=== PATIENT | male | born 1960 | race Caucasian/White ===

== ENCOUNTER 2019-09-18 03:26 | Inpatient (IN) | payer MEDICARE, SELFPAY ==
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
[2019-09-18 03:32] VITALS: BP 120/78; PULSE 80; RESP 18; TEMP 36.6; O2SAT 97; BMI 23.5
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
[2019-09-18] MEDS: haloperidol inj 5 mg/mL INJ 1 mL IM (03:37)
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
[2019-09-18] MEDS: lactated ringers 1,000 ML 150 ML IV (03:56)
[2019-09-18 04:07] LABS: Basophils % 0.2 %; Eosinophils # 0.1 10^3/uL (0.0-0.8); Eosinophils % 0.3 %; Hematocrit 43.8 % (42.0-52.0); Lymphocytes # 5.2 10^3/uL (0.8-4.8); Lymphocytes % 25.2 %; Mean Corpuscular HGB Conc 34.2 g/dL (30.0-36.0); Mean Corpuscular Hemoglobin 31.1 pg (28.0-34.0); Mean Corpuscular Volume 90.9 fL (80-94); Mean Platelet Volume 9.2 fL (7.4-10.4); Monocytes # 1.1 10^3/uL (0.2-0.9); Monocytes % 5.5 %; Neutrophils # 14.1 10^3/uL (1.8-7.7); Neutrophils % 68.2 %; Nucleated Red Blood Cells % 0 %; Platelet Count 263 10^3/cmm (130-400); Red Blood Count 4.82 10^6/uL (4.1-5.3); Red Cell Distribution Width 13.1 % (12.1-15.1); White Blood Count 20.7 10^3/uL (4.0-10.0)
[2019-09-18 04:21] LABS: Alanine Aminotransferase 18 U/L (0-41); Albumin Level 4.8 g/dL (3.5-5.2); Alcohol Level 295 mg/dL (0-10); Alkaline Phosphatase 88 IU/L (40-130); Anion Gap 18.9 (5-19); Aspartate Amino Transferase 35 U/L (0-40); Blood Urea Nitrogen 6 mg/dL (6-20); Calcium 9.3 mg/dL (8.5-10.5); Carbon Dioxide 23 mmol/L (22-29); Chloride 106 mmol/L (98-107); Globulin 2.4 g/dL (1.3-4.6); Glomerular Filtration Rate 99.3 mL/min (90-130); Glucose 100 mg/dL (65-115); Osmolality Calculated 294 mOsm/kg (285-295); Potassium 3.9 mmol/L (3.5-5.1); Sodium 144 mmol/L (136-145); Total Bilirubin 0.2 mg/dL (0.15-1.2); Total Protein 7.2 g/dL (6.6-8.7)
[2019-09-18 04:48] LABS: Phenytoin Dilantin 1.1 ug/mL (10-20); Valproic Acid Level 2.8 mcg/mL (50-100)
[2019-09-18 04:57] LABS: Acetaminophen < 5.0 ug/mL (10-30); Salicylate < 0.3 mg/dL (3-10)
[2019-09-18 05:01] LABS: Lithium < 0.1 mmol/L (0.6-1.2)
--- NOTE | 2019-09-18 05:11 | ECG_ITS ---
Measurements Intervals [place] Rate: 88 P: 73 CT: 171 QRS: -7 QRSD: 86 T: 60 QT: 354 QTc: 430 SINUS RHYTHM INTERPRETATION BASED ON A DEFAULT AGE OF 40 YEARS No previous ECG available for comparison Electronically Signed On 09-18-2019 18:54:15 CDT by Francisco Luna M.D. [email or web address]
[2019-09-18 05:23] LABS: Bacteria Urine TRACE; Bilirubin Urine Neg (NEGATIVE); Blood Urine Neg (Negative); Glucose Urine UA Norm (Normal); Ketones Urine Negative (Negative); Leukocyte Esterase Urine Negative (Negative); Nitrate Urine Negative (Negative); Protein Urine Neg (Negative); RBC Urine RARE /hpf (0-2); Specific Gravity, Urine 1.005 (1.005-1.030); Squamous Epithelial Cell Urine RARE (0-5); Urine Appearance Clear (CLEAR); Urine Color Yellow (Yellow); Urobilinogen Urine Norm (Negative); WBC Urine RARE /hpf (0-5); pH Urine 6.5 (5-7)
[2019-09-18 05:25] LABS: Amphetamines Screen Urine Negative (Negative); Barbiturates Screen Urine Negative (Negative); Benzodiazepines Screen Urine Positive (Negative); Cocaine Screen Urine Negative (Negative); Opiate Screen Urine Positive (Negative); PCP Screen Urine Negative (Negative); THC Screen Urine Negative (Negative)
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
[2019-09-18 06:08] LABS: Lactic Sepsis W/Reflex 2.2 mmol/L (0.5-2.2)
[2019-09-18] MEDS: iohexol 300 mg/mL 100 mL Btl IV (06:28)
[2019-09-18 06:37] LABS: Basophils % 0.2 %; Eosinophils # 0.1 10^3/uL (0.0-0.8); Eosinophils % 0.5 %; Hematocrit 38.4 % (42.0-52.0); Hemoglobin 12.8 g/dL (11.7-16.6); Lymphocytes # 4.4 10^3/uL (0.8-4.8); Lymphocytes % 27.7 %; Mean Corpuscular HGB Conc 33.3 g/dL (30.0-36.0); Mean Corpuscular Hemoglobin 31.4 pg (28.0-34.0); Mean Corpuscular Volume 94.1 fL (80-94); Mean Platelet Volume 9.4 fL (7.4-10.4); Monocytes % 5.9 %; Neutrophils # 10.5 10^3/uL (1.8-7.7); Neutrophils % 65.3 %; Nucleated Red Blood Cells % 0 %; Platelet Count 227 10^3/cmm (130-400); Red Blood Count 4.08 10^6/uL (4.1-5.3); Red Cell Distribution Width 13.2 % (12.1-15.1); White Blood Count 16.1 10^3/uL (4.0-10.0)
[2019-09-18 07:38] LABS: Reflex Lactate Order REFLEX LACTIC ORDERD
[2019-09-18 08:19] VITALS: BP 104/60; PULSE 87; O2SAT 97
--- NOTE | 2019-09-18 08:19 | PC.NURSE ---
Amado Catheter removed. 20 g IV removed from left FA
[2019-09-18 08:31] VITALS: BP 96/62; PULSE 88; RESP 18; TEMP 36.6; O2SAT 99
[2019-09-18 08:50] LABS: Lactic Acid level (Lactate) 1.7 mmol/L (0.5-2.2)
[2019-09-18 14:00] VITALS: BP 111/73; PULSE 92; RESP 18; TEMP 37.1; O2SAT 95
[2019-09-18] MEDS: pregabalin 150 mg Capsule PO ×2 (14:06→20:37)
[2019-09-18] MEDS: HYDROcodone-acetaminophen 10-325 mg Tablet 1 TAB PO ×2 (14:07→20:37)
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
[2019-09-18] MEDS: famotidine 20 mg Tablet 40 MG PO (20:44)
[2019-09-18] MEDS: trazodone 150 mg Tablet PO (21:01)
[2019-09-18 22:00] VITALS: BP 98/63; PULSE 93; RESP 20; TEMP 37.1; O2SAT 96
[2019-09-19 06:00] VITALS: BP 105/76; PULSE 75; RESP 18; TEMP 36.9; O2SAT 97
[2019-09-19 06:37] LABS: Basophils % 0.3 %; Eosinophils # 0.2 10^3/uL (0.0-0.8); Eosinophils % 1.6 %; Hematocrit 40.3 % (42.0-52.0); Hemoglobin 13.7 g/dL (11.7-16.6); Lymphocytes % 26.9 %; Mean Corpuscular Hemoglobin 31.1 pg (28.0-34.0); Mean Corpuscular Volume 91.4 fL (80-94); Mean Platelet Volume 9.3 fL (7.4-10.4); Monocytes # 0.9 10^3/uL (0.2-0.9); Monocytes % 7.7 %; Neutrophils # 7.1 10^3/uL (1.8-7.7); Neutrophils % 63.2 %; Nucleated Red Blood Cells % 0 %; Platelet Count 224 10^3/cmm (130-400); Red Blood Count 4.41 10^6/uL (4.1-5.3); Red Cell Distribution Width 13.2 % (12.1-15.1); White Blood Count 11.3 10^3/uL (4.0-10.0)
[2019-09-19 06:57] LABS: Anion Gap 14.7 (5-19); Blood Urea Nitrogen 12 mg/dL (6-20); Calcium 9.5 mg/dL (8.5-10.5); Carbon Dioxide 26 mmol/L (22-29); Chloride 104 mmol/L (98-107); Glomerular Filtration Rate 86.7 mL/min (90-130); Glucose 95 mg/dL (65-115); Osmolality Calculated 288 mOsm/kg (285-295); Potassium 3.7 mmol/L (3.5-5.1); Sodium 141 mmol/L (136-145)
[2019-09-19] MEDS: pantoprazole DR 40 mg Tablet PO (08:37)
[2019-09-19] MEDS: HYDROcodone-acetaminophen 10-325 mg Tablet 1 TAB PO ×3 (08:38→21:22)
[2019-09-19] MEDS: pregabalin 150 mg Capsule PO ×3 (08:38→21:23)
[2019-09-19] MEDS: thiamine 100 mg Tablet PO (10:15)
[2019-09-19] MEDS: multivitamin therapeutic Tablet 1 TAB PO (10:15)
[2019-09-19] MEDS: folic acid 1 mg Tablet PO (10:15)
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
[2019-09-19 14:00] VITALS: BP 120/79; PULSE 80; RESP 17; TEMP 37.1
--- NOTE | 2019-09-19 14:18 | P.PN_ITS ---
Subjective Subjective: Interval history: Chart reviewed, leukocytosis improved, hemodynamically stable, afebrile. Patient seen in room, pleasant, reports R sided rib cage pain and has bruising on face. Expresses regret for being intoxicated as he had previously been abstinent for 16 yrs. Reports that he may get to go home tomorrow. Lives independently in apartment. Medications: Reviewed: Yes Medication Review Details: Active Medications Generic Name Dose Route Start Last Admin Trade Name Freq PRN Reason Stop Dose Admin Acetaminophen 650 mg 09/18/19 08:31 Tylenol PO Q4H PRN MILD PAIN Hydrocodone Bitart /Acetaminophen 1 tab 09/18/19 15:00 09/19/19 14:16 [place] 10-325 Mg PO 1 tab TID CARLITOS Administration Benztropine Mesyla te 1 mg 09/18/19 08:31 Cogentin PO BID PRN Mild Extrapyramid al symptoms Camphor/Menthol/Ph enol 1 applic 09/18/19 08:31 Blistex TOPICAL Q1H PRN DRYNESS Diazepam 5 mg 09/18/19 11:07 Valium PO TID PRN ANXIETY Diazepam 5 mg 09/19/19 13:27 Valium PO TID PRN ANXIETY Diphenhydramine HC l 50 mg 09/18/19 08:31 Benadryl IM ONCE PRN Severe Extrapyram idal Symptoms Diphenhydramine HC l 50 mg 09/18/19 08:31 Benadryl IM Q4H PRN Severe Aggression Famotidine 40 mg 09/18/19 21:00 09/18/19 20:44 Pepcid Tab PO 40 mg BEDTIME CARLITOS Administration Folic Acid 1 mg 09/19/19 10:00 09/19/19 10:15 Folic Acid PO 1 mg DAILY CARLITOS Administration Haloperidol 5 mg 09/18/19 08:31 Haldol PO Q4H PRN AGITATION Haloperidol Lactat e 5 mg 09/18/19 08:31 Haldol Inj IM Q4H PRN Severe Aggression Hydroxyzine Pamoat e 50 mg 09/18/19 08:31 Vistaril PO Q6H PRN ANXIETY Loperamide HCl 2 mg 09/18/19 08:31 Imodium Capsule PO Q6H PRN DIARRHEA Lorazepam 2 mg 09/18/19 08:31 Ativan IM Q4H PRN ALCOHOL WITHDRAWA L Lorazepam 2 mg 09/19/19 09:55 Ativan PO Q4H PRN ALCOHOL WITHDRAWA L Multivitamins Ther apeutic 1 tab 09/19/19 10:00 09/19/19 10:15 Multivitamin Tab PO 1 tab DAILY CARLITOS Administration Nicotine 1 patch 09/18/19 08:31 Nicoderm 21 Mg P atch TRANSDERMA DAILY PRN NICOTINE WITHDRAW AL Nicotine Polacrile x 2 mg 09/18/19 08:31 Nicorette BUCCAL Q2H PRN NICOTINE WITHDRAW AL Olanzapine 5 mg 09/18/19 08:31 Zyprexa Zydis PO Q4H PRN Agitation/Psychos is Ondansetron HCl 4 mg 09/18/19 08:31 Zofran PO Q6H PRN NAUSEA AND VOMITI NG Pantoprazole Sodiu m 40 mg 09/19/19 09:00 09/19/19 08:37 Protonix PO 40 mg DAILY CARLITOS Administration Pregabalin 150 mg 09/18/19 15:00 09/19/19 14:16 Lyrica PO 150 mg TID CARLITOS Administration Thiamine Mononitra te 100 mg 09/19/19 10:00 09/19/19 10:15 Vitamin B-1 PO 100 mg DAILY CARLITOS Administration Trazodone HCl 50 mg 09/18/19 08:31 Desyrel PO BEDTIME PRN SLEEP Trazodone HCl 150 mg 09/18/19 21:00 09/18/19 21:01 Desyrel PO 150 mg BEDTIME PRN Administration Insomnia Penicillins Allergy (Verified 09/18/19 03:38) ALGY-Anaphylaxis Vitals/I&O/Wt Last Vital Signs Temp 98.5 F 09/19/19 06:00 Pulse 75 09/19/19 06:00 Resp 18 09/19/19 06:00 BP 105/76 09/19/19 06:00 Pulse Ox 97 09/19/19 06:00 09/18/19 09/19/19 09/19/19 22:59 06:59 14:59 Intake Total 240 / 1240 480 / 1720 Balance 240 / 1240 480 / 1720 Weight last 48 hrs Weight 68.039 kg Physical Exam Const: COMMON NORMALS: no acute distress, patient oriented x3 and alert GENERAL APPEARANCE: cooperative and comfortable ORIENTATION/CONSCIOUSNESS: Yes awake HENMT: COMMON NORMALS: normocephalic, atraumatic, hearing grossly normal bilaterally and moist oral mucous membranes HEAD & SCALP: normocephalic and atraumatic FACE & SINUS: other (bruising all over face) Eye: COMMON NORMALS: Equal, round and reactive pupils present, EOMs intact bilaterally and conjunctivae normal CONJUNCTIVA: Yes conjunctivae normal PUPIL: Yes Equal, round and reactive pupils present Neck/C-Spine: COMMON NORMALS: full ROM GENERAL: Yes normal visual inspection and Yes trachea midline Chest: CHEST: Yes Symmetrical chest wall rise and Yes other (tenderness to palpation of R anterior and posterior rib cage) Resp: COMMON NORMALS: normal respiratory effort, No retractions, No use of accessory muscles and clear to auscultation bilaterally EFFORT & INSPECTION: Yes able to speak in complete sentences, Yes symmetric chest movement and No tachypneic AUSCULTATION: clear to auscultation bilaterally Cardio: COMMON NORMALS: regular rate, regular rhythm, S1 normal heart sound present, S2 normal heart sound present and No murmurs present (Cardio) RATE: regular rate RHYTHM: regular rhythm HEART SOUNDS: S1 normal heart sound present and S2 normal heart sound present GI: COMMON NORMALS: Normal to inspection, nondistended, normoactive bowel sounds present, Soft to palpation and non-tender PALPATION: Yes Soft to palpation Extremity: COMMON NORMALS: normal to inspection, full ROM, no clubbing, cyanosis or edema and no pedal edema Neuro: COMMON NORMALS: patient oriented x3, moves all extremities, no focal motor deficits, no sensory deficits noted and gait normal SENSORIUM/ORIENTATION: Yes alert Psych: COMMON NORMALS: mental status grossly normal, Normal thought process present, cooperative, normal affect and speech normal SPEECH: Yes normal speech THOUGHT PROCESS: Normal thought process present Skin: COMMON NORMALS: no jaundice, no petechiae and no mottling Urinary Catheter Management^: Amado: Cath Placed During This Visit: yes Urinary Catheter Date of Insertion: 09/18/19 Urinary Catheter Time of Insertion: 05:58 Data : 09/19/19 06:28 09/19/19 06:28 Micro: Microbiology 09/18/19 05:45 Blood Culture - Preliminary Blood NEGATIVE TO DATE 09/18/19 05:48 Blood Culture - Preliminary Blood NEGATIVE TO DATE A&P Assessment and plan (1) Leukocytosis: -seems to be stress reaction as no overt infection based on extensive imaging, decreased leukocytosis without treatment, afebrile -WBC trending down -noted bladder distention and wall thickening; had Amado catheter placed and removed in ED; may need urology evaluation as outpatient if recurrent issues with this. Will add Flomax, noted potential bladder outlet obstruction which with age is likely secondary to BPH Status: Acute Qualifiers: Leukocytosis type: unspecified Qualified Code(s): D72.829 - Elevated white blood cell count, unspecified (2) Acute alcohol intoxication: -EtOH-295 on admission -reportedly had been abstinent x 16 yrs -continue folic acid, thiamine, multivitamins daily -[facility] protocol -VSS; continue to monitor Status: Acute Qualifiers: Complication of substance-induced condition: uncomplicated Qualified Code(s): F10.920 - Alcohol use, unspecified with intoxication, uncomplicated Additional A&P Information -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 Continue to f/u with Dr. Lassiter, on narcotics -regular diet as tolerated -rest of care per psychiatry -will sign off, please call with questions Attestations Medical Necessity Statement*: Patient requires hospitalization for continued management of acute alcohol intoxication; per psychiatry. Time Spent in Patient Care: 16 - 35 minutes (>than 50% of time spent in counselling and/or direct pt care on unit) . Coding Level of Care Code Acute Outboard System Operator for Chg Fwd Exam Comprehensive Diagnoses Leukocytosis D72.829 Leukocytosis type: unspecified Acute alcohol intoxication F10.920 Complication of substance-induced condition: uncomplicated
[2019-09-19] MEDS: nicotine 21 mg Patch 1 PATCH TRANSDERMA (16:10)
[2019-09-19] MEDS: trazodone 50 mg Tablet PO (21:22)
[2019-09-19] MEDS: famotidine 20 mg Tablet 40 MG PO (21:22)
[2019-09-19] MEDS: tamsulosin 0.4 mg Capsule PO (21:23)
[2019-09-19 22:00] VITALS: BP 115/78; PULSE 84; RESP 16; TEMP 36.6; O2SAT 97
[2019-09-20 06:00] VITALS: BP 104/53; PULSE 65; RESP 17; TEMP 36.7; O2SAT 96
[2019-09-20] MEDS: multivitamin therapeutic Tablet 1 TAB PO (08:22)
[2019-09-20] MEDS: thiamine 100 mg Tablet PO (08:22)
[2019-09-20] MEDS: HYDROcodone-acetaminophen 10-325 mg Tablet 1 TAB PO ×2 (08:22→13:57)
[2019-09-20] MEDS: tamsulosin 0.4 mg Capsule PO (08:22)
[2019-09-20] MEDS: folic acid 1 mg Tablet PO (08:22)
[2019-09-20] MEDS: pregabalin 150 mg Capsule PO ×2 (08:22→13:57)
[2019-09-20] MEDS: pantoprazole DR 40 mg Tablet PO (08:22)
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
[2019-09-20 15:49] VITALS: BP 104/53; PULSE 65; RESP 17; TEMP 36.7; O2SAT 96
--- NOTE | 2019-09-22 12:53 | PC.RESP ---
SMOKING CESSATION INFORMATION SENT TO PATIENT.
== END 2019-09-20 16:28 | disposition home or self-care (01) | DRG 897 ==
LOC: ER 05:56 → NP 07:59
PROVIDERS: Emergency Medicine; Family Medicine; Admitting Provider Psychiatry & Neurology Psychiatry; Family Provider Family Medicine; Visit Provider Psychiatry & Neurology Psychiatry
DX: F10.920 Alcohol use, unspecified with intoxication, uncomplicated (principal); G89.29 Other chronic pain; M54.9 Dorsalgia, unspecified; F32.9 Major depressive disorder, single episode, unspecified; Z79.891 Long term (current) use of opiate analgesic; F17.210 Nicotine dependence, cigarettes, uncomplicated; F41.9 Anxiety disorder, unspecified
CPT/HCPCS: 12345; 36415; 51702; 70450; 71045; 71260; 72125; 72128; 72131; 72170; 74177; 80048; 80053; 80156; 80164; 80178; 80185; 80306; 80307; 81001; 83605; 85025; 87040; 93005; 96372; 99284; J1630; Q9967

== ENCOUNTER 2019-10-14 13:10 | Outpatient (CLI) | payer MEDICARE, SELFPAY ==
--- NOTE | 2019-10-14 13:23 | XR_ITS ---
WS: [id number] LUMBAR SPINE FLEXION AND EXTENSION TECHNIQUE: 3 views of the lumbar spine: Lateral neutral, flexion, and extension views. CLINICAL INFORMATION: LOW BACK PAIN COMPARISON: May 21, 2012 FINDINGS: Normal lumbar alignment on the neutral view. No instability on the flexion and extension views. Mild anterior wedging at T11-T12. Moderate facet a rthropathy L4-L5 and L5-S1. XR/XR lumbar spine f/e only [id number] IMPRESSION: No instability on flexion-extension
== END 2019-10-14 13:11 | disposition home or self-care (01) ==
LOC: RADWPI 13:15
PROVIDERS: Family Provider Family Medicine; PCP Family Medicine; Visit Provider Nurse Practitioner
DX: M54.5 Low back pain (principal); M48.54XA Collapsed vertebra, not elsewhere classified, thoracic region, initial encounter for fracture; M12.88 Other specific arthropathies, not elsewhere classified, other specified site
CPT/HCPCS: 72120

== ENCOUNTER 2021-02-28 17:18 | Emergency (ER) | payer MEDICARE, SELFPAY ==
[2021-02-28] VITALS (7 sets, daily range): BP systolic 120–128; BP diastolic 63–78; PULSE 68–74; RESP 16–22; O2SAT 97–99; BMI 23.5
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
--- NOTE | 2021-02-28 18:37 | ECG_ITS ---
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 Measurements Intervals [place] Rate: 58 P: 151 SD: 131 QRS: -4 QRSD: 85 T: 88 QT: 382 QTc: 377 Interpretive Statements ECTOPIC ATRIAL BRADYCARDIA POSSIBLE LEFT ATRIAL ENLARGEMENT [-0.1mV P-WAVE IN V1/V2] NONSPECIFIC T-WAVE ABNORMALITY Compared to ECG 09/18/2019 05:24:54 Bradycardia, nonsinus now present T-wave abnormality now present Sinus rhythm no longer present Electronically Signed On 03-01-2021 7:29:26 SERVICE ORDER TAKER by Patrizia Valverde M.D. [id number]
[2021-02-28 18:45] LABS: Basophils % 0.4 %; Eosinophils # 0.1 10^3/uL (0.0-0.8); Eosinophils % 1.1 %; Hematocrit 40.3 % (42.0-52.0); Hemoglobin 13.9 g/dL (11.7-16.6); Lymphocytes # 3.1 10^3/uL (0.8-4.8); Mean Corpuscular HGB Conc 34.5 g/dL (30.0-36.0); Mean Corpuscular Hemoglobin 32.3 pg (28.0-34.0); Mean Corpuscular Volume 93.7 fl (80-94); Mean Platelet Volume 9.4 fL (7.4-10.4); Monocytes # 0.7 10^3/uL (0.2-0.9); Neutrophils # 7.48 10^3/uL (1.8-7.7); Neutrophils % 65.3 %; Nucleated Red Blood Cells % 0 %; Platelet Count 280 10^3/cmm (130-400); Red Cell Distribution Width 12.8 % (12.1-15.1); White Blood Count 11.4 10^3/uL (4.0-10.0)
[2021-02-28 18:58] LABS: Alanine Aminotransferase 9 U/L (0-41); Albumin Level 4.3 g/dL (3.5-5.2); Alkaline Phosphatase 138 IU/L (40-130); Anion Gap 15.8 (5-19); Aspartate Amino Transferase 12 U/L (0-40); Blood Urea Nitrogen 13 mg/dL (8-23); Calcium 9.2 mg/dL (8.5-10.5); Carbon Dioxide 21 mmol/L (22-29); Chloride 105 mmol/L (98-107); Globulin 2.6 g/dL (1.3-4.6); Glucose 109 mg/dL (65-115); Osmolality Calculated 287 mOsm/kg (285-295); Potassium 3.8 mmol/L (3.5-5.1); Sodium 138 mmol/L (136-145); Total Bilirubin 0.2 mg/dL (0.15-1.2); Total Protein 6.9 g/dL (6.6-8.7)
[2021-02-28] MEDS: morphine 4 mg/mL SDV 1 mL IVP ×2 (19:01→23:28)
[2021-02-28 19:04] LABS: Acetaminophen < 5.0 ug/mL (10-30); Alcohol Level < 10 mg/dL (0-10); Salicylate < 0.3 mg/dL (3-10)
[2021-02-28] MEDS: methocarbamol 750 mg Tablet PO (19:29)
[2021-02-28] MEDS: LORazepam 2 mg/mL INJ 1 mL 1 MG IVP (20:10)
[2021-02-28 20:11] LABS: Amphetamines Screen Urine Negative (Negative); Barbiturates Screen Urine Negative (Negative); Benzodiazepines Screen Urine Negative (Negative); Cocaine Screen Urine Negative (Negative); Opiate Screen Urine Positive (Negative); PCP Screen Urine Negative (Negative); THC Screen Urine Negative (Negative)
[2021-02-28 22:09] LABS: Thyroid Stimulating Hormone 0.84 uIU/mL (0.27-4.20)
[2021-02-28] MEDS: acetaminophen 500 mg Tablet 1000 MG PO (23:06)
== END 2021-02-28 23:35 | disposition home or self-care (01) ==
PROVIDERS: Emergency Provider Emergency Medicine; PCP Family Medicine
DX: M54.6 Pain in thoracic spine (principal); G89.29 Other chronic pain; F17.200 Nicotine dependence, unspecified, uncomplicated; Z79.891 Long term (current) use of opiate analgesic; F10.20 Alcohol dependence, uncomplicated
CPT/HCPCS: 80053; 80306; 80307; 84443; 85025; 93005; 96365; 96375; 96376; 99284; J2060; J2270; J3490; J7050

== ENCOUNTER → 2021-10-10 13:30 | Outpatient (BNVA) | payer MEDICARE, SELFPAY | PROVIDERS: PCP Family Medicine; Visit Provider Psychiatry & Neurology Psychiatry | DX: F41.1 Generalized anxiety disorder (principal) | CPT/HCPCS: 99204 ==

== ENCOUNTER 2022-02-14 17:38 | Emergency (ER) | payer OTHER, SELFPAY ==
--- NOTE | 2022-02-14 17:31 | XRR_ITS ---
PROCEDURE INFORMATION: Exam: XR Lumbosacral Spine Exam date and time: 02/14/2022 6:32 PM Age: 62 years old Clinical indication: Low back pain; Additional info: Fall back pain TECHNIQUE: Imaging protocol: Radiologic exam of the lumbosacral spine. Views: 2 or 3 views. COMPARISON: CT lumbar spine wo con* [id number] 02/14/2022 6:23 PM FINDINGS: Bones/joints: No acute fracture. Normal alignment. Soft tissues: Unremarkable. XR/XR lumbar spine 2-3V* [id number] IMPRESSION: No acute findings.
--- NOTE | 2022-02-14 17:54 | CTR_ITS ---
PROCEDURE INFORMATION: Exam: CT Lumbar Spine Without Contrast Exam date and time: 02/14/2022 6:23 PM Age: 62 years old Clinical indication: Injury or trauma; Fall; Blunt trauma (contusions or hematomas) TECHNIQUE: Imaging protocol: Computed tomography of the lumbar spine without contrast. Radiation optimization: All CT scans at this facility use at least one of these dose optimization techniques: automated exposure control; mA and/or kV adjustment per patient size (includes targeted exams where dose is matched to clinical indication); or iterative reconstruction. COMPARISON: CT lumbar spine wo con* [id number] 09/18/2019 4:16 AM RADIATION DOSE METRICS: Total DLP (mGy-cm): 803.81 FINDINGS: Bones/joints: No acute fracture. Normal alignment. No significant disc protrusion. No severe spinal canal stenosis. Kidneys and ureters: Incidental note of horseshoe kidneys. Soft tissues: Unremarkable. CT/CT lumbar spine wo con* [id number] IMPRESSION: 1. No acute findings. 2. Horseshoe kidneys.
--- NOTE | 2022-02-14 17:54 | CTR_ITS ---
PROCEDURE INFORMATION: Exam: CT Cervical Spine Without Contrast Exam date and time: 02/14/2022 6:12 PM Age: 62 years old Clinical indication: Injury or trauma; Fall; Blunt trauma (contusions or hematomas) TECHNIQUE: Imaging protocol: Computed tomography of the cervical spine without contrast. Radiation optimization: All CT scans at this facility use at least one of these dose optimization techniques: automated exposure control; mA and/or kV adjustment per patient size (includes targeted exams where dose is matched to clinical indication); or iterative reconstruction. COMPARISON: CT cervical spin wo con* [id number] 09/18/2019 4:10 AM RADIATION DOSE METRICS: Total DLP (mGy-cm): 160.71 FINDINGS: Bones/joints: No acute fracture. Normal alignment. No significant disc protrusion. No severe spinal canal stenosis. Lungs: Lung apices are normal. Soft tissues: Unremarkable. CT/CT neck wo con [id number] IMPRESSION: No acute findings.
--- NOTE | 2022-02-14 17:54 | CTR_ITS ---
PROCEDURE INFORMATION: Exam: CT Thoracic Spine Without Contrast Exam date and time: 02/14/2022 6:18 PM Age: 62 years old Clinical indication: Injury or trauma; Fall; Blunt trauma (contusions or hematomas) TECHNIQUE: Imaging protocol: Computed tomography of the thoracic spine without contrast. Radiation optimization: All CT scans at this facility use at least one of these dose optimization techniques: automated exposure control; mA and/or kV adjustment per patient size (includes targeted exams where dose is matched to clinical indication); or iterative reconstruction. COMPARISON: CT thoracic spin wo con* [id number] 09/18/2019 6:06 AM RADIATION DOSE METRICS: Total DLP (mGy-cm): 803.81 FINDINGS: Bones/joints: No acute fracture. Normal alignment. No significant disc protrusion. No severe spinal canal stenosis. Partially callused posterior right 10th rib fracture noted. Soft tissues: Unremarkable. CT/CT thoracic spin wo con* [id number] IMPRESSION: 1. No acute abnormalities of the thoracic spine. 2. Partially callused posterior right 10th rib fracture.
--- NOTE | 2022-02-14 17:54 | CTR_ITS ---
PROCEDURE INFORMATION: Exam: CT Head Without Contrast Exam date and time: 02/14/2022 6:10 PM Age: 62 years old Clinical indication: Injury or trauma; Fall; Abrasion; Not specified TECHNIQUE: Imaging protocol: Computed tomography of the head without contrast. Radiation optimization: All CT scans at this facility use at least one of these dose optimization techniques: automated exposure control; mA and/or kV adjustment per patient size (includes targeted exams where dose is matched to clinical indication); or iterative reconstruction. COMPARISON: CT head wo con* [id number] 09/18/2019 4:07 AM RADIATION DOSE METRICS: Total DLP (mGy-cm): 1113.78 FINDINGS: Brain: No hemorrhage. No edema. No significant white matter disease. No mass effect. Cerebral ventricles: No ventriculomegaly. Paranasal sinuses: Visualized sinuses are unremarkable. No fluid levels. Mastoid air cells: Visualized mastoid air cells are well aerated. Bones/joints: Unremarkable. No acute fracture. Soft tissues: Unremarkable. CT/CT head wo con* [id number] IMPRESSION: No acute intracranial abnormality.
--- NOTE | 2022-02-14 18:11 | ED_ITS ---
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 He is ground-level fall onto concrete he states that he has back and neck pain along with head pain. He states his pain is a 7 out of 10 much worse with movement. He is unsure if he had a loss of consciousness he also has some right shoulder pain denies any other extremity pain. Denies any chest or abdominal pain. Associated symptoms-after fall: Reports headache(s) and neck pain; Denies abdominal pain or chest pain Review of Systems Const: Denies: fever(s), chills, body aches or change in appetite Eyes: Denies: blurry vision or eye discomfort ENMT: Denies: throat pain or dental pain Card: Denies: chest pain Resp: Denies: dyspnea GI: Denies: abdominal pain, nausea, vomiting or diarrhea : Denies: dysuria Musc: Reports: neck pain, back pain and extremity pain Skin/Breast: Denies: rash Neuro: Reports: headache(s) Psych: Denies: depression Fercho/Lymph: Denies: easy bruising All/Imm: Denies: urticaria PFSH ED PFSH: Medical History Alcoholism Chronic back pain Depression Opioid dependence, daily use Psychiatric care Surgical History S/P appendectomy S/P herniorrhaphy Family History Father Cancer Bone cancer Social History Smoking and tobacco status: current every day smoker cigarettes Packs smoked per day: 1 Years cigarettes smoked: 43 Quit status (tobacco): has tried quititng Number of times tried to quit tobacco: 2 Second hand smoke exposure: Yes Alcohol intake: current Physical Exam Const: COMMON NORMALS: no acute distress, patient oriented x3 and healthy appearing HENMT: COMMON NORMALS: normocephalic and atraumatic HEAD & SCALP: normocephalic and atraumatic Eye: COMMON NORMALS: Equal, round and reactive pupils present and EOMs intact bilaterally PUPIL: Yes Equal, round and reactive pupils present Neck/C-Spine: OTHER: right sided neck tenderness Chest: COMMONS NORMALS: normal inspection of the chest and normal palpation of entire chest wall Resp: COMMON NORMALS: normal respiratory effort, No retractions, No use of accessory muscles and clear to auscultation bilaterally AUSCULTATION: clear to auscultation bilaterally Cardio: COMMON NORMALS: regular rate, regular rhythm and No murmurs present (Cardio) RATE: regular rate RHYTHM: regular rhythm GI: COMMON NORMALS: Normal to inspection, nondistended, normoactive bowel sounds present, Soft to palpation, non-tender and no masses PALPATION: Yes Soft to palpation Back/Pelvis: OTHER: tenderness along thoracic and lumbar spine Extremity: COMMON NORMALS: normal to inspection and full ROM Neuro: COMMON NORMALS: patient oriented x3, moves all extremities and no focal motor deficits Psych: COMMON NORMALS: mental status grossly normal, Normal thought process present and cooperative THOUGHT PROCESS: Normal thought process present Skin: COMMON NORMALS: no rashes or lesions noted and no wounds GENERAL SKIN EXAM: no rashes or lesions noted Course Vital Signs: Vital signs: Vital Signs Temperature 98.0 F 02/14/22 18:55 Pulse Rate 48 L 02/14/22 19:41 Respiratory Rate 16 02/14/22 19:41 Blood Pressure 140/95 02/14/22 19:41 Pulse Oximetry 100 02/14/22 19:41 Oxygen Delivery Me thod 02/14/22 19:41 MDM - Fall Medical Decision Making Patient presents here with back pain from a fall. He is also some shoulder and head neck pain his images all here are normal he feels improved he is able ambulate patient stable for discharge he is to follow-up with PCP and return if worsening. Lab Data Radiology Impressions Lumbar Spine X-Ray 02/14/22 17:31 IMPRESSION: No acute findings. Head CT 02/14/22 17:54 IMPRESSION: No acute intracranial abnormality. Lumbar Spine CT 02/14/22 17:54 IMPRESSION: 1. No acute findings. 2. Horseshoe kidneys. Neck CT 02/14/22 17:54 IMPRESSION: No acute findings. Thoracic Spine CT 02/14/22 17:54 IMPRESSION: 1. No acute abnormalities of the thoracic spine. 2. Partially callused posterior right 10th rib fracture. Shoulder X-Ray 02/14/22 18:45 IMPRESSION: No acute findings. Discharge Plan Discharge Patient Disposition: Home Clinical Impression: Thoracic back pain Condition: Stable Prescriptions: New methocarbamol 750 mg tablet 750 mg PO Q6H PRN (Reason: spasms) Qty: 20 0RF No Action Lyrica 150 mg capsule 150 mg PO TID pantoprazole 40 mg tablet,delayed release (DR/EC) 40 mg PO DAILY atorvastatin 10 mg tablet 10 mg PO DAILY trazodone 100 mg tablet 200 mg PO .HS PRN (Reason: insomnia) Qty: 180 0RF duloxetine [Cymbalta] 30 mg capsule,delayed release(DR/EC) 30 mg PO DAILY Qty: 30 0RF hydroxyzine HCl 50 mg tablet 50 mg PO QID PRN (Reason: anxiety) Qty: 120 0RF Discharge Orders: Discharge ED (Routine); Ordered 02/14/22 Ordered By: Jaymie Reed Referrals: Raysa Thomas MD [Primary Care Provider] - 1-3 days Discharge Diet: Advance as tolerated Discharge Activity: Resume usual activity Patient Instructions: Contusion in Adults (ED), Fall Prevention (ED) Coding Level of Care Code ED Domestic Violence Counselor for Liat Black Exam Comprehensive
--- NOTE | 2022-02-14 18:45 | XRR_ITS ---
PROCEDURE INFORMATION: Exam: XR Right Shoulder Exam date and time: 02/14/2022 7:22 PM Age: 62 years old Clinical indication: Pain; Shoulder; Right; Additional info: Injury TECHNIQUE: Imaging protocol: Radiologic exam of the Right shoulder. Views: 2 or more views. COMPARISON: CT neck wo con [id number] 02/14/2022 6:12 PM FINDINGS: Bones/joints: Osseous structures are intact. Negative for fracture or dislocation. Soft tissues: Normal. XR/XR shoulder RT min 2V* [id number] IMPRESSION: No acute findings.
[2022-02-14 18:55] VITALS: BP 148/86; PULSE 54; RESP 18; TEMP 36.7; O2SAT 98
[2022-02-14] MEDS: ondansetron 2 mg/ML SDV 2 mL 4 MG IVP (19:00)
[2022-02-14 19:01] VITALS: RESP 18
[2022-02-14] MEDS: morphine 4 mg/mL SDV 1 mL IVP (19:01)
[2022-02-14 19:41] VITALS: BP 140/95; PULSE 48; RESP 16; O2SAT 100
--- NOTE | 2022-02-14 19:41 | PC.NURSE ---
PATIENT ASLEEP. CAREGIVER PRESENT AT BEDSIDE. CAREGIVER STATED NO FURTHER NEEDS.
[2022-02-14] MEDS: HYDROcodone-acetaminophen 7.5-325 mg Tablet 1 TAB PO (20:11)
== END 2022-02-14 20:13 | disposition home or self-care (01) ==
PROVIDERS: Emergency Provider Emergency Medicine; PCP Family Medicine
DX: M54.6 Pain in thoracic spine (principal); F17.210 Nicotine dependence, cigarettes, uncomplicated
CPT/HCPCS: 70450; 70490; 72100; 72128; 72131; 73030; 96374; 96375; 99285; J2270; J2405

== ENCOUNTER 2022-05-01 13:44 | Emergency (ER) | payer MEDICARE, SELFPAY ==
[2022-05-01] VITALS (12 sets, daily range): BP systolic 128–130; BP diastolic 55–78; PULSE 71; RESP 16; O2SAT 95–98; BMI 24.2
--- NOTE | 2022-05-01 15:17 | ED_ITS ---
HPI - Back Pain/Injury General: Chief Complaint: Altered Mental Status Stated Complaint: Overdose Time Seen by Provider: 05/01/22 13:50 Source: patient Mode of arrival: ambulatory Limitations: no limitations History of Present Illness: This patient is interviewed by me after being in the emergency department approxi-1 hour. There is some history obtained from EMS however at the time of my interview the patient states that he was at home attempted to lift a dresser and had an exacerbation of his chronic back pain. He states he then got in his vehicle and during the process of driving his vehicle his back pain increased. He states he pulling unit floorhand the side of the road and was bent over attempting to relieve his back pain and local Police Department came to his aid and called EMS. EMS allegedly states that he was inhaling and subsequently transferred him to the emergency department. This patient currently denies any such activity to me. He states that he feels improved. He has chronic back pain and takes prescribed opiates for that condition and is also under the care of a pain clinic. He denies any fevers, loss of bowel or bladder control, perianal numbness etc. MD elicited complaint: back pain Pertinent past history: prior back pain Timing: intermittent Severity: moderate Quality: dull and aching Location: lumbar spine Exacerbating factors: movement Associated symptoms: Reports no associated symptoms; Deny abdominal pain, chills, difficulty walking, dysuria, fever(s), nausea, syncope or vomiting Review of Systems Const: Denies: fever(s) or chills Eyes: Denies: change in vision ENMT: Denies: throat pain, odynophagia, nasal discharge or nasal congestion Card: Denies: chest pain, palpitations, syncope or pre-syncope Resp: Denies: dyspnea, productive cough or non-productive cough GI: Denies: abdominal pain, nausea or vomiting : Denies: flank pain, difficulty urinating, dysuria, urinary hesitancy or urinary dribbling Musc: Reports: back pain; Denies: neck pain, extremity pain or extremity swelling Skin/Breast: Denies: rash Neuro: Denies: headache(s), numbness in extremities, weakness in extremities or difficulty walking Psych: Denies: anxiety or depression Endo: Denies: polyuria or polydipsia PFS ED PFSH: Medical History Alcoholism Chronic back pain Depression Opioid dependence, daily use Psychiatric care Surgical History S/P appendectomy S/P herniorrhaphy Family History Father Cancer Bone cancer Social History Smoking and tobacco status: current every day smoker cigarettes Packs smoked per day: 1 Years cigarettes smoked: 43 Quit status (tobacco): has tried quititng Number of times tried to quit tobacco: 2 Second hand smoke exposure: Yes Alcohol intake: current Physical Exam Narrative: EXAM NARRATIVE: Patient makes good eye contact. He answers questions are goal-directed and linear thought pattern. Speech is fluent and not affected by dysarthria, slurring etc. Const: COMMON NORMALS: no acute distress and patient oriented x3 GENERAL APPEARANCE: cooperative and comfortable NUTRITIONAL APPEARANCE: thin ORIENTATION/CONSCIOUSNESS: Yes awake HENMT: COMMON NORMALS: normocephalic, atraumatic, Normal nasal mucous membranes and turbinates present and moist oral mucous membranes HEAD & SCALP: normocephalic and atraumatic FACE & SINUS: normal facial exam NOSE: Normal nasal mucous membranes and turbinates present Eye: COMMON NORMALS: Equal, round and reactive pupils present, EOMs intact bilaterally and conjunctivae normal CONJUNCTIVA: Yes conjunctivae normal PUPIL: Yes Equal, round and reactive pupils present Neck/C-Spine: COMMON NORMALS: full ROM, no lymphadenopathy and supple Chest: COMMONS NORMALS: normal inspection of the chest and normal palpation of entire chest wall Resp: COMMON NORMALS: normal respiratory effort, No retractions, No use of accessory muscles and clear to auscultation bilaterally AUSCULTATION: clear to auscultation bilaterally Cardio: COMMON NORMALS: regular rate, regular rhythm and No murmurs present (Cardio) RATE: regular rate RHYTHM: regular rhythm GI: COMMON NORMALS: Normal to inspection, nondistended, normoactive bowel sounds present and Soft to palpation PALPATION: Yes Soft to palpation : COMMON NORMALS: Yes no CVA tenderness BLADDER/KIDNEY EXAM: Yes no CVA tenderness Back/Pelvis: COMMON NORMALS: no CVA tenderness and straight leg raise negative bilaterally THORACIC SPINE/UPPER BACK: Yes thoracic ROM normal, No thoracic spinal tenderness, No paraspinal muscle tenderness and No paraspinal muscle spasm LUMBAR SPINE/LOWER BACK: Yes normal to inspection, Yes ROM limited (Limited rotation left and right, forward bending), No lumbar spinal tenderness, Yes paraspinal muscle tenderness and Yes straight leg raise negative bilaterally SACROILIAC JOINTS: Yes SI joints normal Extremity: COMMON NORMALS: normal to inspection, full ROM, no calf tenderness and no pedal edema Neuro: COMMON NORMALS: patient oriented x3, moves all extremities, no focal motor deficits and no sensory deficits noted GAIT: Yes Normal gait present Psych: COMMON NORMALS: mental status grossly normal, Normal thought process present, cooperative, speech normal and activity/motor behavior normal ATTITUDE: Yes engaged SPEECH: Yes normal speech THOUGHT PROCESS: Normal thought process present Skin: COMMON NORMALS: no rashes or lesions noted and turgor normal GENERAL SKIN EXAM: no rashes or lesions noted and turgor normal Course Vital Signs: Vital signs: Vital Signs Pulse Rate 71 05/01/22 13:49 Respiratory Rate 16 05/01/22 13:49 Blood Pressure 129/76 05/01/22 15:00 Pulse Oximetry 95 05/01/22 14:50 Oxygen Delivery Me thod 05/01/22 13:49 MDM - Back Pain/Injury Medical Decision Making Mixed history obtained from this patient versus that obtained from EMS however his clinical evaluation here in the emergency department reveals him to be alert, linear in his thought process, not clinically intoxicated or apparently under the influence of any mind altering substances at the time of my evaluation. His clinical examination reveals paravertebral muscle tenderness without any evidence of neurologic findings and he has no red flag history or current symptoms. He desires to be discharged in the emergency department at this time I do not have any evidence of an ongoing emergency medical condition that requires further evaluation or stabilization or admission. Discussed return precautions. Medical Records I reviewed the patient's medical records. Discharge Plan Discharge Patient Disposition: Home Clinical Impression: Chronic back pain Condition: Stable Prescriptions: No Action Lyrica 150 mg capsule 150 mg PO TID pantoprazole 40 mg tablet,delayed release (DR/EC) 40 mg PO DAILY atorvastatin 10 mg tablet 10 mg PO DAILY duloxetine [Cymbalta] 30 mg capsule,delayed release(DR/EC) 30 mg PO DAILY Qty: 30 0RF hydroxyzine HCl 50 mg tablet 50 mg PO QID PRN (Reason: anxiety) Qty: 120 0RF methocarbamol 750 mg tablet 750 mg PO Q6H PRN (Reason: spasms) Qty: 20 0RF trazodone 100 mg tablet 200 mg PO BEDTIME PRN (Reason: insomnia) Discharge Orders: Discharge ED (Routine); Ordered 05/01/22 Ordered By: Sal[place] Cota Referrals: Raysa Thomas MD [Primary Care Provider] - Discharge Diet: Usual diet Discharge Activity: Increase activity as tolerated Patient Instructions: Opioid Safety, Pain Management Activity Restrictions/Additional Instructions: Continue usual medications for your chronic low back pain. If you develop any weakness, loss of bowel bladder control fever or worsening pain return to this or the nearest emergency department. Coding Level of Care Code ED Pairer Substandard for Liat Black
[2022-05-01] MEDS: ketorolac 30 mg/mL INJ 15 MG IVP (15:23)
== END 2022-05-01 15:39 | disposition home or self-care (01) ==
PROVIDERS: Emergency Provider Emergency Medicine; PCP Family Medicine
DX: G89.29 Other chronic pain (principal); F17.210 Nicotine dependence, cigarettes, uncomplicated
CPT/HCPCS: 96374; 99284; J1885

== ENCOUNTER 2022-08-06 13:16 | Inpatient (IN) | payer MEDICARE, SELFPAY ==
--- NOTE | 2022-08-06 13:24 | W.ED.AMS ---
HPI - Altered Mental Status General: Chief Complaint: Psychiatric Symptoms Stated Complaint: BEHAVIORAL ISSUES/ HUFFING Time Seen by Provider: 08/06/22 13:24 History of Present Illness: Mr Goodwin is a 62-year-old gentleman with history of chronic back pain presenting to the emergency department for syncopal episode in the context of huffing air duster. He reports previously following with a primary care provider for his chronic pain and that physician previously retired. Since that time he is at no medications and chronic pain. He reports trying to treat his pain by huffing air duster. He was in a parking lot doing this and apparently fainted. Denies other specific provoking events or changes in health. He does note some bilateral lower extremity though is intermittent with regards to whether this is worse or baseline for him. No other red flag symptoms. Intensity symptoms is moderate and baseline. Worse with palpation and movement. No other specific changes in health, exacerbating, or alleviating factors identified. Onset (ago): minute(s) Context: drug abuse Associated symptoms: Reports depression Review of Systems General: Reports: 10 or more systems reviewed and unremarkable except in HPI and below Psych: Reports: depression PFSH ED PFSH: Medical History Alcoholism Chronic back pain Opioid dependence, daily use Psychiatric care Surgical History S/P appendectomy S/P herniorrhaphy Family History Father Cancer Bone cancer Social History Smoking and tobacco status: current every day smoker cigarettes Packs smoked per day: 1 Years cigarettes smoked: 43 Quit status (tobacco): has tried quititng Number of times tried to quit tobacco: 2 Second hand smoke exposure: Yes Alcohol intake: current Substance/Drug Use: never Physical Exam Const: COMMON NORMALS: patient oriented x3 and alert GENERAL APPEARANCE: cooperative and well developed HENMT: COMMON NORMALS: normocephalic and atraumatic HEAD & SCALP: normocephalic and atraumatic Eye: COMMON NORMALS: conjunctivae normal CONJUNCTIVA: Yes conjunctivae normal SCLERA: sclerae normal Neck/C-Spine: COMMON NORMALS: supple GENERAL: Yes trachea midline Resp: COMMON NORMALS: normal respiratory effort EFFORT & INSPECTION: Yes able to speak in complete sentences Cardio: COMMON NORMALS: regular rate and regular rhythm RATE: regular rate RHYTHM: regular rhythm GI: COMMON NORMALS: Soft to palpation PALPATION: Yes Soft to palpation and No Tenderness to palpation present (GI) PERCUSSION: normal to percussion Extremity: GENERAL: Yes normal exam except as noted and No edema Neuro: COMMON NORMALS: patient oriented x3, CN's II-XII intact bilaterally, moves all extremities, no focal motor deficits and no sensory deficits noted (baseline BLE) SENSORIUM/ORIENTATION: Yes alert and No Orientation impaired Psych: COMMON NORMALS: mental status grossly normal and Normal thought process present THOUGHT PROCESS: Normal thought process present Skin: NARRATIVE SKIN EXAM: Old abrasions on patient's hand with scabbing Course Vital Signs: Vital signs: Vital Signs Temperature 98.1 F 08/09/22 15:56 Pulse Rate 96 08/09/22 15:56 Respiratory Rate 16 08/09/22 15:56 Blood Pressure 127/85 08/09/22 15:56 Pulse Oximetry 98 08/09/22 15:56 Oxygen Delivery Me thod Room Air 08/09/22 14:00 MDM - Altered Mental Status Medical Decision Making 62-year-old gentleman presenting due to syncopal episode in the context of coughing. Endorses chronic pain. No focal neurologic deficits on assessment. CTs demonstrate no acute pathology. X-rays with no fractures. Chest x-ray with no lobar consolidation or pneumothorax. EKG demonstrates normal axis and intervals, sinus rhythm, no STEMI Patient subsequently endorsed suicidal ideation. I had a vernon discussion with the patient regarding admission. He understands clearly that admission does not guarantee opioid pain medication. No significant hematologic or metabolic abnormalities, mild dehydration the patient can adequately tolerate oral intake. Urine drug screen is positive for opiates, he claims to be out of medications, toxic ingestions are otherwise negative. The results of ED evaluation were discussed with the patient including plan for admission due to requirement for level of care not available if discharged to prevent significant worsening/deterioration. Patient agreeable with plan. Discussed with psychiatry service who was agreeable to admit patient. Medical Records I reviewed the patient's medical records. Lab Data I reviewed the patient's lab results. 08/06/22 13:03 08/06/22 13:03 Radiology Impressions Chest X-Ray 08/06/22 13:37 Impression: Negative chest. Head CT 08/06/22 13:37 IMPRESSION: Negative head CT. Thoracic Spine CT 08/06/22 13:37 IMPRESSION: Negative thoracic spine CT. Hand X-Ray 08/06/22 14:33 Impression: Negative for new fracture or dislocation. Laboratory Results WBC 9.7 10^3/uL (4.0-10.0) 08/06/22 13:03 RBC 4.29 10^6/uL (4.1-5.3) 08/06/22 13:03 Hgb 14.0 g/dL (11.7-16.6) 08/06/22 13:03 Hct 40.2 % (42.0-52.0) L 08/06/22 13:03 MCV 93.7 fl (80-94) 08/06/22 13:03 MCH 32.6 pg (28.0-34.0) 08/06/22 13:03 MCHC 34.8 g/dL (30.0-36.0) 08/06/22 13:03 RDW 13.4 % (12.1-15.1) 08/06/22 13:03 Plt Count 317 10^3/cmm (130-400) 08/06/22 13:03 MPV 9.1 fL (7.4-10.4) 08/06/22 13:03 Neut % (Auto) 69.7 % 08/06/22 13:03 Lymph % (Auto) 25.4 % 08/06/22 13:03 [place] % (Auto) 4.4 % 08/06/22 13:03 Eos % (Auto) 0.0 % 08/06/22 13:03 Baso % (Auto) 0.2 % 08/06/22 13:03 Neut # (Auto) 6.78 10^3/uL (1.8-7.7) 08/06/22 13:03 Lymph # (Auto) 2.5 10^3/uL (0.8-4.8) 08/06/22 13:03 [place] # (Auto) 0.4 10^3/uL (0.2-0.9) 08/06/22 13:03 Eos # (Auto) 0.0 10^3/uL (0.0-0.8) 08/06/22 13:03 Baso # (Auto) 0.0 10^3/uL (0.0-0.1) 08/06/22 13:03 Nucleated RBC % (auto) 0 % 08/06/22 13:03 Nucleated RBCs # 0.0 /100WBC 08/06/22 13:03 Sodium 135 mmol/L (136-145) L 08/06/22 13:03 Potassium 3.5 mmol/L (3.5-5.1) 08/06/22 13:03 Chloride 100 mmol/L (98-107) 08/06/22 13:03 Carbon Dioxide 21 mmol/L (22-29) L 08/06/22 13:03 Anion Gap 17.5 (5-19) 08/06/22 13:03 BUN 8 mg/dL (8-23) 08/06/22 13:03 Creatinine 0.8 mg/dL (0.7-1.2) 08/06/22 13:03 GFR Calculation 98.3 mL/min (90-130) 08/06/22 13:03 Glucose 90 mg/dL (65-115) 08/06/22 13:03 Calculated Osmolality 278 mOsm/kg (285-295) L 08/06/22 13:03 Calcium 9.1 mg/dL (8.5-10.5) 08/06/22 13:03 Total Bilirubin 0.4 mg/dL (0.15-1.2) 08/06/22 13:03 AST 20 U/L (0-40) 08/06/22 13:03 ALT 11 U/L (0-41) 08/06/22 13:03 Alkaline Phosphatase 84 U/L (40-130) 08/06/22 13:03 Total Protein 7.2 g/dL (6.6-8.7) 08/06/22 13:03 Albumin 4.7 g/dL (3.5-5.2) 08/06/22 13:03 Globulin 2.5 g/dL (1.3-4.6) 08/06/22 13:03 TSH 1.18 uIU/mL (0.27-4.20) 08/06/22 13:03 Salicylates < 0.3 mg/dL (3-10) L 08/06/22 13:03 Urine Opiates Screen Positive ng/mL (Negative) H 08/06/22 16:45 Acetaminophen < 5.0 ug/mL (10-30) L 08/06/22 13:03 Ur Barbiturates Screen Negative ng/mL (Negative) 08/06/22 16:45 Ur Phencyclidine Scrn Negative ng/mL (Negative) 08/06/22 16:45 Ur Amphetamines Screen Negative ng/mL (Negative) 08/06/22 16:45 U Benzodiazepines Scrn Negative ng/mL (Negative) 08/06/22 16:45 Urine Cocaine Screen Negative ng/mL (Negative) 08/06/22 16:45 U Marijuana (THC) Screen Negative ng/mL (Negative) 08/06/22 16:45 Ethyl Alcohol < 10 mg/dL (0-10) 08/06/22 13:03 Discharge Plan Discharge Patient Disposition: Admitted As Inpatient Admit Provider: Jarvis Tobin Clinical Impression: Huffing, Depression, Syncope and collapse, Chronic pain Condition: Stable Discharge Diet: Usual diet Discharge Activity: Resume usual activity Coding Level of Care Code ED Respiratory Equipment Assistant for Liat Black
[2022-08-06 13:28] VITALS: RESP 17; TEMP 37; BMI 22.0
--- NOTE | 2022-08-06 13:37 | ECG_ITS ---
[facility] Test Date: 2022-08-06 Pat Name: John Goodwin Department: Room: Gender: Male Glass Bulb Silverer: : 1960 Requested By: Alfred Santamaria Order Number: [id number] Yolande MD: Rob Camejo M.D. Measurements Intervals [place] Rate: 68 P: 70 TN: 134 QRS: 11 QRSD: 89 T: 55 QT: 412 QTc: 440 Interpretive Statements SINUS RHYTHM Compared to ECG 02/28/2021 19:14:51 Bradycardia, nonsinus no longer present T-wave abnormality no longer present Electronically Signed On 08-06-2022 17:07:06 CDT by Rob Camejo M.D. [id number]
--- NOTE | 2022-08-06 13:37 | CT_ITS ---
WS: [id number] CT HEAD NONCONTRAST HISTORY: syncope TECHNIQUE: Contiguous axial imaging performed through the brain in 2.5 mm imaging. Bone and soft tiss ue windows. Sagittal and coronal reformats reviewed. All CT scans at [facility] use at least one of these dose optimization techniques: automated exposure control; mA and/or kV adjustment per pa tient size (includes targeted exams where dose is matched to clinical indication); or iterative recon struction. DLP: 1073.60 mGy.cm COMPARISON: 02/14/2022 No acute intracranial hemorrhage, midline shift or mass effect. No atrophy or prior infarcts or herniation. Mild small vessel ischemic disease. Ventricles: Normal size with no hydrocephalus. Paranasal sinuses: As visualized are clear. Mastoid air cells: Well pneumatized. Calvarium and scalp: Skull is intact with no soft tissue edema or swelling. CT/CT head wo con* [id number] IMPRESSION: Negative head CT.
--- NOTE | 2022-08-06 13:37 | CT_ITS ---
WS: [id number] CT THORACIC SPINE HISTORY: low back pain, fall TECHNIQUE: Contiguous 2.5 mm axial images are reviewed to thoracic spine. Images are reformatted in s agittal and coronal planes. All CT scans at [facility] use at least one of these dose optimiz ation techniques: automated exposure control; mA and/or kV adjustment per patient size (includes targ eted exams where dose is matched to clinical indication); or iterative reconstruction. DLP: 443.69 mGy.cm COMPARISON: None available. Normal thoracic alignment. Vertebral bodies and posterior elements are normal. No fractures. Visualiz ed adjacent soft tissues and lungs are normal. No significant disc protrusions. Atherosclerosis aorta. CT/CT thoracic spin wo con* [id number] IMPRESSION: Negative thoracic spine CT.
--- NOTE | 2022-08-06 13:37 | XR_ITS ---
WS: [id number] Portable AP upright chest, 08/06/2022 Clinical Data: syncope Comparison: Portable chest, 09/18/2019 Findings: No nodules, masses or effusions are seen. The heart is normal. The pulmonary vascularity is not increased. No pneumonia or pneumothorax is seen. XR/XR chest 1V portable [id number] Impression: Negative chest.
--- NOTE | 2022-08-06 14:33 | XR_ITS ---
WS: [id number] Right hand, 3 views, 08/06/2022 Clinical Data: fall Comparison: None. Findings: No new fractures or dislocations are seen. There is an old fracture of the right fifth me tacarpal. The soft tissues are unremarkable. The joint spaces are normal XR/XR hand RT min 3V* [id number] Impression: Negative for new fracture or dislocation.
[2022-08-06] MEDS: hyDROXYzine 25 mg Capsule PO (15:08)
[2022-08-06] MEDS: cyclobenzaprine 10 mg Tablet PO (15:08)
[2022-08-06] MEDS: acetaminophen 500 mg Tablet 1000 MG PO (15:08)
[2022-08-06 15:10] VITALS: BP 116/89
[2022-08-06 16:15] LABS: Basophils % 0.2 %; Hematocrit 40.2 % (42.0-52.0); Lymphocytes # 2.5 10^3/uL (0.8-4.8); Lymphocytes % 25.4 %; Mean Corpuscular HGB Conc 34.8 g/dL (30.0-36.0); Mean Corpuscular Hemoglobin 32.6 pg (28.0-34.0); Mean Corpuscular Volume 93.7 fl (80-94); Mean Platelet Volume 9.1 fL (7.4-10.4); Monocytes # 0.4 10^3/uL (0.2-0.9); Monocytes % 4.4 %; Neutrophils # 6.78 10^3/uL (1.8-7.7); Neutrophils % 69.7 %; Nucleated Red Blood Cells % 0 %; Platelet Count 317 10^3/cmm (130-400); Red Blood Count 4.29 10^6/uL (4.1-5.3); Red Cell Distribution Width 13.4 % (12.1-15.1); White Blood Count 9.7 10^3/uL (4.0-10.0)
[2022-08-06 16:37] LABS: Alanine Aminotransferase 11 U/L (0-41); Albumin Level 4.7 g/dL (3.5-5.2); Alkaline Phosphatase 84 U/L (40-130); Anion Gap 17.5 (5-19); Aspartate Amino Transferase 20 U/L (0-40); Blood Urea Nitrogen 8 mg/dL (8-23); Calcium 9.1 mg/dL (8.5-10.5); Carbon Dioxide 21 mmol/L (22-29); Chloride 100 mmol/L (98-107); Globulin 2.5 g/dL (1.3-4.6); Glomerular Filtration Rate 98.3 mL/min (90-130); Glucose 90 mg/dL (65-115); Osmolality Calculated 278 mOsm/kg (285-295); Potassium 3.5 mmol/L (3.5-5.1); Sodium 135 mmol/L (136-145); Thyroid Stimulating Hormone 1.18 uIU/mL (0.27-4.20); Total Bilirubin 0.4 mg/dL (0.15-1.2); Total Protein 7.2 g/dL (6.6-8.7)
[2022-08-06] MEDS: tetanus-dipt-pertussis 0.5 mL SDV IM (16:44)
[2022-08-06 16:45] LABS: Acetaminophen < 5.0 ug/mL (10-30); Alcohol Level < 10 mg/dL (0-10); Salicylate < 0.3 mg/dL (3-10)
[2022-08-06 17:17] VITALS: O2SAT 99
[2022-08-06 17:35] LABS: Amphetamines Screen Urine Negative (Negative); Barbiturates Screen Urine Negative (Negative); Benzodiazepines Screen Urine Negative (Negative); Cocaine Screen Urine Negative (Negative); Opiate Screen Urine Positive (Negative); PCP Screen Urine Negative (Negative); THC Screen Urine Negative (Negative)
[2022-08-06 19:57] VITALS: RESP 16
[2022-08-06 20:20] VITALS: BP 128/69; PULSE 97; RESP 18; TEMP 36.3; O2SAT 96
[2022-08-06 20:59] VITALS: BP 128/69; PULSE 97; RESP 18; TEMP 36.3; O2SAT 96
[2022-08-06] MEDS: hyDROXYzine 25 mg Capsule 50 MG PO (21:21)
[2022-08-06] MEDS: acetaminophen 325 mg Tablet 650 MG PO (21:21)
[2022-08-06] MEDS: trazodone 50 mg Tablet PO (21:22)
[2022-08-07 06:00] VITALS: BP 106/73; PULSE 96; RESP 18; TEMP 36.8; O2SAT 98
[2022-08-07] MEDS: acetaminophen 325 mg Tablet 650 MG PO ×2 (08:48→13:53)
[2022-08-07] MEDS: nicotine 21 mg Patch 1 PATCH TRANSDERMA (09:04)
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
[2022-08-07 14:00] VITALS: BP 119/73; PULSE 88; RESP 16; TEMP 36.8; O2SAT 97
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
[2022-08-07] MEDS: buprenorphine-naloxone 4-1 mg Film 2 EACH SUBLINGUAL (18:02)
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
[2022-08-07] MEDS: trazodone 150 mg Tablet PO (20:34)
[2022-08-07 21:59] VITALS: BP 133/78; PULSE 79; RESP 18; TEMP 36.8; O2SAT 96
[2022-08-08 06:00] VITALS: BP 103/70; PULSE 96; RESP 15; TEMP 36.5; O2SAT 98
[2022-08-08] MEDS: acetaminophen 325 mg Tablet 650 MG PO (06:44)
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
--- NOTE | 2022-08-08 08:44 | PC.NURSE ---
PT IN DAY ROOM CONVERSING WITH PEERS. PT IS OBSERVED TO BE LIMPING AND REPORTS BACK PAIN 11/29. PT STATES HE IS TO LET STAFF KNOW IF THE SUBOXONE HE WAS STARTED ON YESTERDAY WORKED. PT STATES IT DID NOT WORK AT ALL. REASSURED PT THAT THIS RN WOULD LET KNOW. PT WAS INFORMED HE WOULD GET THE SUBOXONE AGAIN THIS AM AND RN WOULD RE-EVALUATE PAIN AFTER HE TAKES. PT AGREED TO CONTINUE THE MEDICATION AND GIVE IT A CHANCE. PT DENIES SI/HI AND AVH AT THIS TIME. PT REPORTS THAT IF HIS PAIN COULD GET UNDER CONTROL THEN ALOT OF HIS ISSUES WOULD RESOLVE. PT WAS EDUCATED ON OTHER METHODS OF PAIN CONTROL, BREATHING TECHNIQUES AND MEDITATIONS. PT STATED I'VE TRIED ALL OF THAT. PT WAS ENCOURAGED TO BE OPEN TO DIFFERENT TECHNIQUES. PT DENIES SI/HI AND AVH AT THIS TIME. STATES HE IS HAVING ANXIETY DUE TO HIS PAIN. PT CONTINUES TO WAIT IN DAY AREA FOR BREAKFAST
--- NOTE | 2022-08-08 08:45 | PC.NURSE ---
HOSPITALIST HERE TO SEE PT. NEW ORDERS RECEIVED FOR WOUND TO THE RIGHT 3RD, 4TH AND 5TH FINGERS. WHEN SUPPLIES GET HERE TO UNIT DRESSING WILL BE CHANGED ORDERED. ALSO PUT ORDER IN FOR OT FOR HAND EXERCISES AND STRESS BALL TO PREVENT CONTRACTURE. PT WAS EDUCATED ON NEW ORDERS AND THE IMPORTANCE OF KEEPING WOUND CLEAN AND DRY AND FOLLOWING OT DIRECTIONS
[2022-08-08] MEDS: buprenorphine-naloxone 4-1 mg Film 2 EACH SUBLINGUAL ×2 (08:46→17:42)
[2022-08-08] MEDS: nicotine 21 mg Patch 1 PATCH TRANSDERMA (08:55)
[2022-08-08] MEDS: silver sulfadiazine cream 1% 50 gm 1 APPLIC TOPICAL (09:06)
[2022-08-08] MEDS: hyDROXYzine 25 mg Capsule 50 MG PO ×2 (12:11→20:25)
--- NOTE | 2022-08-08 12:21 | PC.NURSE ---
spoke with pt, pt stating that he is feeling anxious because he just realized that he miss his court day because of being in the hospital. pt has spoke with social work about he situation. pt requested something to help with anxiety, prn vitaril was administered.
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
[2022-08-08 14:00] VITALS: BP 127/75; PULSE 89; RESP 18; TEMP 36.8; O2SAT 98
--- NOTE | 2022-08-08 16:36 | PC.NURSE ---
DR. ADAMS HERE TO DEBRIDE RIGHT 2ND, 3RD AND 4TH FINGERS. PT TOLERATED WELL. NEW ORDERS WERE RECEIVED TO APPLY BRIANA AND WRAP WITH GAUZE.
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
[2022-08-08] MEDS: neomycin-poly-bacitracin oint 28 gm 1 APPLIC TOPICAL (18:29)
[2022-08-08] MEDS: trazodone 150 mg Tablet PO (20:26)
[2022-08-08 22:00] VITALS: BP 127/85; PULSE 96; RESP 18; TEMP 36.7; O2SAT 98
[2022-08-08] MEDS: OLANZapine 5 mg ODT PO (23:12)
[2022-08-09 05:53] VITALS: RESP 16
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
[2022-08-09] MEDS: acetaminophen 325 mg Tablet 650 MG PO ×2 (07:32→13:43)
[2022-08-09] MEDS: buprenorphine-naloxone 4-1 mg Film 2 EACH SUBLINGUAL (08:50)
[2022-08-09] MEDS: neomycin-poly-bacitracin oint 28 gm 1 APPLIC TOPICAL (09:02)
[2022-08-09] MEDS: hyDROXYzine 25 mg Capsule 50 MG PO (10:14)
[2022-08-09] MEDS: nicotine 21 mg Patch 1 PATCH TRANSDERMA (10:14)
--- NOTE | 2022-08-09 11:06 | DCPLANNER ---
Cm printed IMM and gave pt a copy and explained rights and placed copy in his file
[2022-08-09] MEDS: calcium carbonate 500 mg Chew Tablet 1000 MG PO ×2 (12:45→16:26)
[2022-08-09 14:00] VITALS: BP 121/76; PULSE 90; RESP 18; TEMP 36.7; O2SAT 98
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
[2022-08-09 15:56] VITALS: BP 127/85; PULSE 96; RESP 16; TEMP 36.7; O2SAT 98
== END 2022-08-09 16:43 | disposition home or self-care (01) | DRG 885 ==
LOC: ER 16:16 → NP 18:49
PROVIDERS: Admitting Provider Psychiatry & Neurology Psychiatry; Emergency Provider Emergency Medicine; PCP Family Medicine; Visit Provider Psychiatry & Neurology Psychiatry
DX: F33.2 Major depressive disorder, recurrent severe without psychotic features (principal); F11.20 Opioid dependence, uncomplicated; G89.29 Other chronic pain; M54.9 Dorsalgia, unspecified; F41.1 Generalized anxiety disorder; F18.10 Inhalant abuse, uncomplicated; F17.210 Nicotine dependence, cigarettes, uncomplicated; F10.11 Alcohol abuse, in remission; T23.261D Burn of second degree of back of right hand, subsequent encounter; X03.0XXD Exposure to flames in controlled fire, not in building or structure, subsequent encounter
CPT/HCPCS: 36415; 70450; 71045; 72128; 73130; 80053; 80306; 80307; 84443; 85025; 90471; 90715; 93005; 97150; 97165; 99285; J0573

== ENCOUNTER → 2022-08-13 08:05 | Outpatient (BNVA) | payer MEDICARE, SELFPAY | PROVIDERS: PCP Family Medicine; Visit Provider Thoracic Surgery (Cardiothoracic Vascular Surgery) | DX: I96 Gangrene, not elsewhere classified (principal); T23.231D Burn of second degree of multiple right fingers (nail), not including thumb, subsequent encounter; X08.8XXD Exposure to other specified smoke, fire and flames, subsequent encounter | CPT/HCPCS: 97597; 99213; A6446 ==

== ENCOUNTER 2022-10-14 23:10 | Emergency (ER) | payer MEDICARE, SELFPAY ==
--- NOTE | 2022-10-14 23:16 | ECG_ITS ---
[facility] Test Date: 2022-10-14 Pat Name: John Goodwin Department: Room: Gender: Male Aids Counselor: : 1960 Requested By: Vitaly Elmore Order Number: [id number] Yolande MD: Rob Camejo M.D. Measurements Intervals [place] Rate: 83 P: 65 MI: 122 QRS: 11 QRSD: 78 T: 62 QT: 316 QTc: 372 Interpretive Statements SINUS RHYTHM NONSPECIFIC T-WAVE ABNORMALITY Compared to ECG 08/06/2022 15:48:17 T-wave abnormality now present Electronically Signed On 10-15-2022 9:37:53 CDT by Rob Camejo M.D. [id number]
[2022-10-14 23:19] VITALS: BP 101/69; PULSE 88; RESP 24; TEMP 36.6; O2SAT 99; BMI 18.2
[2022-10-14 23:24] VITALS: O2SAT 99
--- NOTE | 2022-10-14 23:32 | XRR_ITS ---
PROCEDURE INFORMATION: Exam: XR Chest Exam date and time: 10/14/2022 11:34 PM Age: 62 years old Clinical indication: Chest pressure; Patient HX: C/O chest pain TECHNIQUE: Imaging protocol: Radiologic exam of the chest. Views: 1 view. COMPARISON: CR XR chest 1V portable [id number] 08/06/2022 2:01 PM FINDINGS: Lungs: Unremarkable. No consolidation. Pleural spaces: Unremarkable. No pleural effusion. No pneumothorax. Heart/Mediastinum: Unremarkable. No cardiomegaly. Bones/joints: Unremarkable. XR/XR chest 1V portable [id number] IMPRESSION: No acute findings.
[2022-10-14 23:40] LABS: Basophils % 0.3 %; Eosinophils # 0.1 10^3/uL (0.0-0.8); Eosinophils % 1.2 %; Hematocrit 46.1 % (42.0-52.0); Hemoglobin 15.5 g/dL (11.7-16.6); Lymphocytes # 3.6 10^3/uL (0.8-4.8); Lymphocytes % 36.8 %; Mean Corpuscular HGB Conc 33.6 g/dL (30.0-36.0); Mean Corpuscular Hemoglobin 29.8 pg (28.0-34.0); Mean Corpuscular Volume 88.7 fl (80-94); Mean Platelet Volume 9.4 fL (7.4-10.4); Monocytes # 0.7 10^3/uL (0.2-0.9); Monocytes % 7.4 %; Neutrophils # 5.33 10^3/uL (1.8-7.7); Neutrophils % 54.1 %; Nucleated Red Blood Cells % 0 %; Platelet Count 305 10^3/cmm (130-400); White Blood Count 9.9 10^3/uL (4.0-10.0)
[2022-10-14 23:50] VITALS: BP 102/71; PULSE 67; RESP 20; O2SAT 100
[2022-10-15 00:16] LABS: Alanine Aminotransferase 11 U/L (0-41); Albumin Level 4.4 g/dL (3.5-5.2); Alkaline Phosphatase 93 U/L (40-130); Anion Gap 16.5 (5-19); Aspartate Amino Transferase 12 U/L (0-40); Blood Urea Nitrogen 13 mg/dL (8-23); Calcium 9.8 mg/dL (8.5-10.5); Carbon Dioxide 26 mmol/L (22-29); Chloride 101 mmol/L (98-107); Globulin 2.8 g/dL (1.3-4.6); Glucose 91 mg/dL (65-115); Osmolality Calculated 290 mOsm/kg (285-295); Potassium 3.5 mmol/L (3.5-5.1); Sodium 140 mmol/L (136-145); Total Bilirubin 0.4 mg/dL (0.15-1.2); Total Protein 7.2 g/dL (6.6-8.7)
[2022-10-15 00:17] LABS: Troponin(5th) Baseline 7 ng/L (0-15)
[2022-10-15 00:26] VITALS: BP 94/70; PULSE 74; RESP 15; O2SAT 100
[2022-10-15 00:31] VITALS: RESP 18
[2022-10-15] MEDS: morphine 4 mg/mL SDV 1 mL IVP (00:31)
[2022-10-15] MEDS: ondansetron 2 mg/ML SDV 2 mL 4 MG IVP (00:32)
[2022-10-15 00:38] VITALS: BP 104/72; PULSE 66; RESP 19; O2SAT 100
--- NOTE | 2022-10-15 00:45 | ECG_ITS ---
[facility] Test Date: 2022-10-15 Pat Name: John Goodwin Department: Room: Gender: Male Inpatient Care Manager Rn: : 1960 Requested By: Vitaly Elmore Order Number: [id number] Yolande MD: Rob Camejo M.D. Measurements Intervals [place] Rate: 62 P: 68 ME: 124 QRS: 4 QRSD: 92 T: 66 QT: 420 QTc: 427 Interpretive Statements SINUS RHYTHM Compared to ECG 10/14/2022 23:16:05 T-wave abnormality no longer present Electronically Signed On 10-15-2022 17:29:20 CDT by Rob Camejo M.D. [id number]
[2022-10-15 01:07] LABS: Troponin 5 2HR Delta -0.1 ABS# (0-10)
[2022-10-15 01:33] VITALS: RESP 18
[2022-10-15] MEDS: morphine 4 mg/mL SDV 1 mL 2 MG IVP (01:33)
[2022-10-15 01:36] VITALS: BP 109/80; PULSE 62; RESP 24; O2SAT 100
[2022-10-15 01:50] VITALS: BP 109/80; PULSE 70; RESP 20; O2SAT 98
--- NOTE | 2022-10-15 04:17 | W.ED.CHESTPA ---
HPI - Chest Pain General: Chief Complaint: Chest Pain Stated Complaint: CP Time Seen by Provider: 10/14/22 23:15 Source: patient History of Present Illness: 62-year-old male brought in in law enforcement custody. He complains of chest discomfort, that is acute over the past several days. He says it has been constant. Its in the center of his chest. He has some shortness of breath with it. No vomiting. He notes his lower back hurts as well, which is a chronic condition for him. MD complaint: chest pain Pertinent past history: other Onset (ago): day(s) Timing of current episode: constant Prior episodes: Yes Pain location: substernal Relieving factors: nothing Exacerbating factors: nothing Associated symptoms: Reports dyspnea; Deny abdominal pain, diaphoresis, fever(s), leg edema, palpitations or vomiting Treatment prior to arrival: none Review of Systems Const: Denies: fever(s) or diaphoresis ENMT: Denies: throat pain Card: Reports: chest pain; Denies: palpitations Resp: Reports: dyspnea GI: Denies: abdominal pain or vomiting PFSH ED PFSH: Medical History Alcoholism in remission Chronic back pain Chronic pain syndrome Current smoker Started at age 18 and still smokes 1 pack/day GERD (gastroesophageal reflux disease) Hyperlipidemia Insomnia Opioid dependence, daily use Surgical History S/P appendectomy S/P herniorrhaphy Family History Father Cancer Bone cancer Social History Smoking and tobacco status: current every day smoker cigarettes Packs smoked per day: 1 Years cigarettes smoked: 43 Quit status (tobacco): has tried quititng Number of times tried to quit tobacco: 2 Second hand smoke exposure: Yes Alcohol intake: current Substance/Drug Use: never Physical Exam Const: GENERAL APPEARANCE: cooperative and anxious; not ill appearing and not frail appearing HENMT: COMMON NORMALS: normocephalic, atraumatic and Normal external nose present HEAD & SCALP: normocephalic and atraumatic FACE & SINUS: normal facial exam and face symmetric NOSE: Normal external nose present Eye: COMMON NORMALS: Equal, round and reactive pupils present and EOMs intact bilaterally PUPIL: Yes Equal, round and reactive pupils present Neck/C-Spine: GENERAL: Yes trachea midline Chest: CHEST: Yes Symmetrical chest wall rise Resp: COMMON NORMALS: normal respiratory effort, No retractions, No use of accessory muscles and clear to auscultation bilaterally AUSCULTATION: clear to auscultation bilaterally Cardio: COMMON NORMALS: regular rate and regular rhythm RATE: regular rate RHYTHM: regular rhythm GI: COMMON NORMALS: Normal to inspection, nondistended, normoactive bowel sounds present Extremity: COMMON NORMALS: no pedal edema Neuro: MARGARETTE COMA SCALE: document GCS findings [place] coma scale eye opening: Spontaneous [place] coma scale verbal response: Orientated [place] coma scale motor response: Obey commands [place] coma scale total score: 15 SENSORY EXAM: Yes extremities (intact) Psych: COMMON NORMALS: speech normal SPEECH: Yes normal speech Skin: COMMON NORMALS: no rashes or lesions noted GENERAL SKIN EXAM: no rashes or lesions noted Course Vital Signs: Vital signs: Vital Signs Temperature 97.9 F 10/14/22 23:19 Pulse Rate 70 10/15/22 01:50 Respiratory Rate 20 H 10/15/22 01:50 Blood Pressure 109/80 10/15/22 01:50 Pulse Oximetry 98 10/15/22 01:50 Oxygen Delivery Me thod Room Air 10/15/22 01:36 MDM - Chest Pain Medical Decision Making Vitals are normal. CBC is normal. BMP is normal. EKG shows a sinus rhythm with normal axis and intervals, rate of 68, no ST changes. Chest x-ray is normal. Delta troponin is -0.1. He will be allowed discharged Lab Data 10/14/22 23:00 10/14/22 23:00 Radiology Impressions Chest X-Ray 10/14/22 23:32 IMPRESSION: No acute findings. Laboratory Results WBC 9.9 10^3/uL (4.0-10.0) 10/14/22 23:00 RBC 5.20 10^6/uL (4.1-5.3) 10/14/22 23:00 Hgb 15.5 g/dL (11.7-16.6) 10/14/22 23:00 Hct 46.1 % (42.0-52.0) 10/14/22 23:00 MCV 88.7 fl (80-94) 10/14/22 23:00 MCH 29.8 pg (28.0-34.0) 10/14/22 23:00 MCHC 33.6 g/dL (30.0-36.0) 10/14/22 23:00 RDW 12.0 % (12.1-15.1) L 10/14/22:00 Plt Count 305 10^3/cmm (130-400) 10/14/22 23:00 MPV 9.4 fL (7.4-10.4) 10/14/22 23:00 Neut % (Auto) 54.1 % 10/14/22 23:00 Lymph % (Auto) 36.8 % 10/14/22:00 Collin % (Auto) 7.4 % 10/14/22:00 Eos % (Auto) 1.2 % 10/14/22 23:00 Baso % (Auto) 0.3 % 10/14/22 23:00 Neut # (Auto) 5.33 10^3/uL (1.8-7.7) 10/14/22 23:00 Lymph # (Auto) 3.6 10^3/uL (0.8-4.8) 10/14/22 23:00 Collin # (Auto) 0.7 10^3/uL (0.2-0.9) 10/14/22 23:00 Eos # (Auto) 0.1 10^3/uL (0.0-0.8) 10/14/22 23:00 Baso # (Auto) 0.0 10^3/uL (0.0-0.1) 10/14/22 23:00 Nucleated RBC % (auto) 0 % 10/14/22 23:00 Nucleated RBCs # 0.0 /100WBC 10/14/22 23:00 Sodium 140 mmol/L (136-145) 10/14/22 23:00 Potassium 3.5 mmol/L (3.5-5.1) 10/14/22 23:00 Chloride 101 mmol/L (98-107) 10/14/22 23:00 Carbon Dioxide 26 mmol/L (22-29) 10/14/22 23:00 Anion Gap 16.5 (5-19) 10/14/22 23:00 BUN 13 mg/dL (8-23) 10/14/22 23:00 Creatinine 0.6 mg/dL (0.7-1.2) L 10/14/22 23:00 GFR Calculation 137.0 mL/min (90-130) H 10/14/22 23:00 Glucose 91 mg/dL (65-115) 10/14/22 23:00 Calculated Osmolality 290 mOsm/kg (285-295) 10/14/22 23:00 Calcium 9.8 mg/dL (8.5-10.5) 10/14/22 23:00 Total Bilirubin 0.4 mg/dL (0.15-1.2) 10/14/22 23:00 AST 12 U/L (0-40) 10/14/22 23:00 ALT 11 U/L (0-41) 10/14/22 23:00 Alkaline Phosphatase 93 U/L (40-130) 10/14/22 23:00 Troponin T Baseline 7 ng/L (0-15) 10/14/22 23:00 Troponin T 120 Minute 6.90 ng/L (0-15) 10/15/22 00:40 Delta Troponin T -0.1 ABS# (0-10) L 10/15/22 00:40 Total Protein 7.2 g/dL (6.6-8.7) 10/14/22 23:00 Albumin 4.4 g/dL (3.5-5.2) 10/14/22 23:00 Globulin 2.8 g/dL (1.3-4.6) 10/14/22 23:00 Discharge Plan Discharge Patient Disposition: Home Clinical Impression: Chest pain, Chronic back pain Condition: Stable Prescriptions: No Action Lyrica 150 mg capsule 150 mg PO TID 30 Days Qty: 90 5RF trazodone 150 mg tablet 150 mg PO DAILY 30 Days Qty: 30 5RF atorvastatin 40 mg tablet 40 mg PO DAILY Qty: 30 5RF pantoprazole 40 mg tablet,delayed release (DR/EC) 40 mg PO DAILY Qty: 30 5RF hydroxyzine HCl 50 mg tablet 50 mg PO QID PRN (Reason: anxiety) Qty: 360 0RF Discharge Orders: Discharge ED (Routine); Ordered 10/15/22 Ordered By: Vitaly Lopez Referrals: Ari Lopez MD [Primary Care Provider] - 1-3 days Patient Instructions: Chest Pain (ED), Back Pain (ED) Coding Level of Care Code ED Punchboard Inserter for Liat Black
== END 2022-10-15 01:58 | disposition home or self-care (01) ==
PROVIDERS: Emergency Provider Emergency Medicine; PCP Family Medicine Adult Medicine
DX: R07.9 Chest pain, unspecified (principal); G89.29 Other chronic pain; M54.9 Dorsalgia, unspecified; E78.5 Hyperlipidemia, unspecified; F17.210 Nicotine dependence, cigarettes, uncomplicated
CPT/HCPCS: 71045; 80053; 84484; 85025; 93005; 96374; 96375; 96376; 99285; J2270; J2405

== ENCOUNTER 2023-08-26 14:20 | Emergency (ER) | payer MEDICARE, MEDICAID, SELFPAY ==
[2023-08-26 14:28] VITALS: BP 126/68; PULSE 71; RESP 18; TEMP 36.5; O2SAT 98; BMI 18.0
--- NOTE | 2023-08-26 14:53 | W.ED.BACK ---
HPI - Back Pain/Injury General: Chief Complaint: Back Pain/Injury Stated Complaint: back pain Time Seen by Provider: 08/26/23 14:33 Source: patient Mode of arrival: ambulatory History of Present Illness: 63-year-old male was lifting some heavy furniture time admitted belated through a doorway that started to fall he would catch it and he wrenched his back. He has had back problems in the past. No direct trauma or fall or direct blow. He has pain radiating bilaterally into the upper thighs no fecal incontinence. No saddle paresthesias MD elicited complaint: back pain Pertinent past history: prior back pain Onset (ago): minute(s) Timing: constant Severity: severe Similar Symptoms Previously: Yes Quality: stabbing and spasming Location: lumbar spine Radiation: left upper leg and right upper leg Exacerbating factors: none Relieving factors: none Context: while lifting and turning/twisting Associated symptoms: Deny abdominal pain, arthralgias, chills, change in bowel habits, difficulty walking, dysuria, fatigue, fecal incontinence, fever(s), hematuria, myalgias, nausea, numbness, syncope, tingling/numbness/burning, urinary frequency, urinary urgency, vomiting or weakness Review of Systems Const: Denies: fever(s), chills or fatigue Card: Denies: syncope Resp: Denies: dyspnea GI: Denies: abdominal pain, nausea, vomiting, fecal incontinence or change in bowel habits : Denies: dysuria, urinary urgency or hematuria Musc: Denies: neck pain or back pain Skin/Breast: Denies: rash Neuro: Denies: difficulty walking PFS ED PFSH: Medical History (Updated 08/26/23 @ 17:18 by Jude Morillo DO) Nocturnal leg cramps Hx of opioid abuse Alcoholism in remission Insomnia GERD (gastroesophageal reflux disease) Current smoker Started at age 18 and still smokes 1 pack/day Hyperlipidemia Second degree burn of back of right hand Chronic back pain Surgical History S/P herniorrhaphy S/P appendectomy Family History Father Cancer Bone cancer Social History (Reviewed 10/15/22 @ 04:30 by ELICEO Phillips Smoking and tobacco/nicotine status: current every day tobacco/nicotine user cigarettes Packs smoked per day: 1 Years cigarettes smoked: 43 Quit status (tobacco/nicotine): has tried quititng Number of times tried to quit tobacco: 2 Second hand smoke exposure: Yes Alcohol intake: current Substance/Drug Use: never Physical Exam Const: GENERAL APPEARANCE: cooperative and comfortable ORIENTATION/CONSCIOUSNESS: Yes awake, Yes oriented to person, Yes oriented to place and Yes oriented to time HENMT: COMMON NORMALS: normocephalic, atraumatic and hearing grossly normal bilaterally HEAD & SCALP: normocephalic and atraumatic Resp: COMMON NORMALS: normal respiratory effort, No retractions, No use of accessory muscles and clear to auscultation bilaterally AUSCULTATION: clear to auscultation bilaterally Cardio: COMMON NORMALS: regular rate, regular rhythm and No murmurs present (Cardio) RATE: regular rate RHYTHM: regular rhythm GI: COMMON NORMALS: Soft to palpation and No hepatosplenomegaly present AUSCULTATION: Yes normoactive bowel sounds PALPATION: Yes Soft to palpation, No Tenderness to palpation present (GI), No Guarding due to palpation present (GI) and Yes No hepatosplenomegaly present Extremity: COMMON NORMALS: normal to inspection, capillary refill normal, no clubbing, cyanosis or edema, no calf tenderness and no pedal edema OTHER: Neurovascular intact lower extremity dorsum plantarflexion normal at the ankle bilaterally. Neuro: SENSORIUM/ORIENTATION: Yes oriented to person, Yes oriented to place and Yes oriented to time Skin: COMMON NORMALS: no rashes or lesions noted GENERAL SKIN EXAM: no rashes or lesions noted Course Vital Signs: Vital signs: Vital Signs Temperature 97.7 F 08/26/23 14:28 Pulse Rate 70 08/26/23 17:29 Respiratory Rate 18 08/26/23 14:28 Blood Pressure 127/81 08/26/23 17:29 Pulse Oximetry 98 08/26/23 17:29 Oxygen Delivery Me thod Room Air 08/26/23 16:57 MDM - Back Pain/Injury Medical Decision Making Back pain improved slightly with medications we offered patient narcotics but he is going through rehab program and does not want to use any narcotics at all. He did improve a bit of the steroids Norflex and Toradol. Will discharge patient home with tizanidine and diclofenac. If not improving over the next few days encourage patient to follow-up with his primary care doctor for possible further evaluation and/or referral to PT as appropriate Differential Diagnosis Likely lumbar radiculopathy and strain of lumbar region Medical Records I reviewed the patient's medical records. Labs I reviewed the patient's lab results. All radiology interpretation(s) finalized by discharge Discharge Plan Discharge Patient Disposition: Home Clinical Impression: Strain of lumbar region, Lumbar radiculopathy Condition: Stable Prescriptions: New tizanidine 4 mg tablet 4 mg PO Q6H PRN (Reason: muscle spasticity) Qty: 20 0RF Rx Instructions: do not exceed 3 doses per 24 hrs prednisone 20 mg tablet 20 mg PO TID Qty: 15 0RF Rx Instructions: 1 p.o. 3 times daily x3 days, 1 p.o. twice daily x2 days, 1 p.o. daily x2 days diclofenac sodium 75 mg tablet,delayed release (DR/EC) 75 mg PO Q12H PRN (Reason: pain) Qty: 20 0RF No Action atorvastatin 40 mg tablet 40 mg PO DAILY Qty: 30 5RF hydroxyzine HCl 50 mg tablet 50 mg PO QID PRN (Reason: anxiety) Qty: 360 0RF ropinirole 1 mg tablet 1 mg PO .q hs Qty: 90 1RF pantoprazole 40 mg tablet,delayed release (DR/EC) 40 mg PO DAILY Qty: 90 1RF bupropion HCl 150 mg tablet sustained-release 12 hr 150 mg PO QAM Qty: 90 1RF gabapentin 300 mg capsule 300 mg PO TID Qty: 270 0RF Discharge Orders: Discharge ED (Routine); Ordered 08/26/23 Ordered By: Jude Morillo Referrals: Ari Lopez MD [Primary Care Provider] - Discharge Diet: Usual diet Discharge Activity: Resume usual activity Patient Instructions: Opioid Safety, Pain Management Coding Level of Care Code ED Correspondence Dictator for Liat Black
[2023-08-26] MEDS: orphenadrine 30 mg/mL Inj 2 mL 60 MG IM (15:03)
[2023-08-26] MEDS: dexamethasone 10 mg/mL INJ IM (15:04)
[2023-08-26] MEDS: ketorolac 60 mg/2 mL INJ IM (15:56)
[2023-08-26 16:57] VITALS: BP 119/55; PULSE 68; O2SAT 100
[2023-08-26 17:29] VITALS: BP 127/81; PULSE 70; O2SAT 98
== END 2023-08-26 17:47 | disposition home or self-care (01) ==
PROVIDERS: Emergency Provider Family Medicine; PCP Family Medicine Adult Medicine
DX: S39.012A Strain of muscle, fascia and tendon of lower back, initial encounter (principal); M54.16 Radiculopathy, lumbar region; E78.5 Hyperlipidemia, unspecified; F17.210 Nicotine dependence, cigarettes, uncomplicated; X50.0XXA Overexertion from strenuous movement or load, initial encounter
CPT/HCPCS: 96372; 99284; J1100; J1885; J2360